=== PATIENT | female | born 1990 | race African-American/Black ===

== ENCOUNTER 2024-12-11 07:43 | Emergency (ER) | payer OTHER ==
[~2024-12-11] VITALS: Ht 175.3 cm; Wt 79.8 kg
[2024-12-11] MEDS ORDERED: MIDOTAB PO (07:52)
[2024-12-11 08:44] LABS: BASO # 0.0 10^3/uL (0.0-0.2); BASO % 1.1 % (0.0-1.0); EOS # 0.1 10^3/uL (0.0-0.5); EOS % 1.7 % (0.0-3.0); LYMPH # 1.5 10^3/uL (1.5-5.0); LYMPH % 41.2 % (24.0-44.0); MONO # 0.3 10^3/uL (0.0-0.8); MONO % 7.0 % (2.0-8.0); NEUTROPHILS # 1.7 10^3/uL (1.5-8.5); NEUTROPHILS % 48.7 % (36.0-66.0); PLATELET COUNT, AUTOMATED 234 10^3/uL (150-450)
[2024-12-11 09:16] LABS: CALCIUM LEVEL 8.8 MG/DL (8.5-10.1); CARBON DIOXIDE LEVEL 25 MMOL/L (20-31); CHLORIDE LEVEL 108 MMOL/L (98-107); CREATININE FOR GFR 0.62 MG/DL (0.55-1.30); GLOMERULAR FILTRATION RATE > 90.0 (>60); HCG, SERUM QUANTITATIVE < 2.6 MIU/ML (<4.2); POTASSIUM SERUM 4.2 MMOL/L (3.5-5.1); SODIUM LEVEL 141 MMOL/L (136-145)
[2024-12-11 09:46] VITALS: BP 110/70; TEMP 99.1; O2SAT 100
== END 2024-12-11 09:48 | disposition home or self-care (01) ==
LOC: M ED 07:43
DX: N92.0 Excessive and frequent menstruation with regular cycle (principal)